=== PATIENT | female | born 1970 | race Caucasian/White ===

== ENCOUNTER → 2023-07-05 15:32 | Outpatient (REF) | payer BC, SELFPAY | LOC: HWWDC 15:32 | PROVIDERS: ATTENDING PHYSICIAN Nurse Practitioner Family | DX: Z12.31 Encounter for screening mammogram for malignant neoplasm of breast (principal) | CPT/HCPCS: 77063; 77067 ==

== ENCOUNTER → 2023-07-09 09:32 | Outpatient (REF) | payer BC, SELFPAY | LOC: WDC 09:32 | PROVIDERS: ATTENDING PHYSICIAN Nurse Practitioner Family | DX: R92.8 Other abnormal and inconclusive findings on diagnostic imaging of breast (principal) | CPT/HCPCS: 76642 ==

== ENCOUNTER → 2023-07-14 11:25 | Outpatient (REF) | payer BC, SELFPAY ==
--- NOTE | 2023-07-14 13:38 | OID.BR.INTR ---
[facility] Breast Navigator - Initial
- -
Date of Contact: 07/14/23
Met with patient. Patient given written information on navigator services and support services available at [facility]. Will follow up as needed per protocol.
== END ==
LOC: WDC 11:25
PROVIDERS: ATTENDING PHYSICIAN Nurse Practitioner Family
DX: N63.23 Unspecified lump in the left breast, lower outer quadrant (principal)
CPT/HCPCS: 88305; 19083; 77065; 88341; 88342; A4648

== ENCOUNTER → 2023-07-14 15:13 | Outpatient (REF) | payer SELFPAY | LOC: HWRAD 15:13 | PROVIDERS: ATTENDING PHYSICIAN Nurse Practitioner Family | DX: E78.00 Pure hypercholesterolemia, unspecified (principal) | CPT/HCPCS: 75571 ==